=== PATIENT | male | born 1965 | race African-American/Black ===

== ENCOUNTER 2024-04-10 15:37 | Emergency (ER) | payer OTHER ==
[~2024-04-10] VITALS: Ht 177.8 cm; Wt 73.0 kg
[~2024-04-10 15:37] MED LIST: MOM PO
[2024-04-10 15:46] VITALS: O2SAT 98
[2024-04-10 15:51] VITALS: BP 160/108; PULSE 78; RESP 16; TEMP 37.00296; O2SAT 98
[2024-04-10] MEDS ORDERED: HYDR-4001 MT ×2 (19:38→19:40)
[2024-04-10] MEDS ORDERED: IBUP-2028 MT (19:38)
[2024-04-10] MEDS ORDERED: TOPUD PO (19:38)
[2024-04-10] MEDS ORDERED: LIDO700A30 TP (19:38)
== END 2024-04-10 20:42 | disposition home or self-care (01) ==
LOC: ER 15:37
DX: M54.2 Cervicalgia (principal); M25.562 Pain in left knee; R10.9 Unspecified abdominal pain; Z79.899 Other long term (current) drug therapy
CPT/HCPCS: 99283